=== PATIENT | female | born 1955 | race Caucasian/White ===

== ENCOUNTER 2020-04-19 19:04 | Observation (INO) ==
[2020-04-19 19:47] LABS: ABG Base Excess 11 mEq/L (-2 to 3); ABG HCO3 44 mEq/L (21-27); ABG Oxygen Saturation 88 % (95-98); ABG PCO2 121 mmHg (35-45); ABG PH 7.17 pH Units (7.32-7.45); ABG PO2 75 mmHg (85-104); ABG TCO2 48 mEq/L (20-26)
[2020-04-19 19:51] LABS: Bilirubin,Urine Negative (Negative); Blood,Urine Trace-lysed (Negative); Clarity,Urine Cloudy (Clear); Color,Urine Yellow (Yellow); Glucose,Urine (UA) Normal (Normal); Ketones,Urine Negative (Negative); Leukocyte Esterase,Urine Negative (Negative); Nitrite,Urine Negative (Negative); Protein,Urine >=300 mg/dL (Neg-Trace); Specific Gravity,Urine 1.025 (1.010-1.025); Urobilinogen,Urine Normal (Normal)
[2020-04-19 19:57] LABS: Amorphous Sediment,Urine Many per hpf (None-Few); Bacteria,Urine Few per hpf (None-Few); Transitional Epi Cells,Urine Moderate per hpf (None-Few)
[2020-04-19] MEDS ORDERED: methylPREDNISolone 125 MG/2 ML VIAL IVP ONE (19:59)
[2020-04-19] MEDS ORDERED: Ipratropium/Albuterol Neb 3 ML IH ONE (19:59)
[2020-04-19 20:00] LABS: Activated Partial Thrombo Time 33.1 Seconds (26.0-36.0); INR 1.1; Prothrombin Time 12.4 Seconds (9.4-12.1)
[2020-04-19] MEDS ORDERED: Azithromycin 500 MG in 0.9 % Sodium Chloride 250 ML IVPB ONE (20:00)
[2020-04-19 20:05] LABS: Basophils % 0.4 %; Eosinophils % 0.2 %; Hematocrit 36.4 % (35.3-44.9); Hemoglobin 9.9 g/dL (11.5-15.4); Immature Granulocytes % 1.8 % (0-4); Lymphocytes # 0.6 K/mcL (0.6-4.6); Lymphocytes % 6.8 %; Mean Corpuscular HGB Conc 27.2 g/dL (31.6-35.5); Mean Corpuscular Hemoglobin 26.1 pg (28.0-33.3); Mean Platelet Volume 12.1 fL (9.4-12.4); Monocytes # 0.6 K/mcL (0.0-1.3); Monocytes % 6.5 %; Neutrophils # 7.2 K/mcL (1.6-8.9); Platelet Count 170 K/mcL (140-400); Red Blood Count 3.79 M/mcL (3.82-4.97); Red Cell Distribution Width 15.8 % (11.5-14.5); Segmented Neutrophils % 84.3 %; White Blood Count 8.6 K/mcL (4.3-11.1)
[2020-04-19 20:08] LABS: Troponin I < 0.03 ng/mL (< 0.04)
[2020-04-19 20:10] LABS: Platelet Estimate Normal (Normal)
[2020-04-19 20:12] LABS: Alanine Aminotransferase 16 Units/L (7-52); Albumin 3.6 g/dL (3.5-5.7); Albumin/Globulin Ratio 1.3 (1.1-2.2); Alkaline Phosphatase 206 Units/L (34-104); Aspartate Amino Transferase 13 Units/L (13-39); BUN/Creatinine Ratio 23 (6-26); Bilirubin,Indirect 0.4 mg/dL (0.0-1.0); Bilirubin,Total 0.4 mg/dL (0.3-1.0); Blood Urea Nitrogen 35 mg/dL (8-23); Calcium 10.2 mg/dL (8.6-10.3); Carbon Dioxide 43 mEq/L (23-29); Chloride 99 mEq/L (98-107); Ethanol < 10 mg/dL (Less than 10); Globulin 2.7 g/dL (2.4-3.5); Glucose 143 mg/dL (70-105); Lipase 8 Units/L (11-82); Osmolality,Calculated 306 (280-300); Potassium 5.3 mEq/L (3.5-5.1); Sodium 143 mEq/L (136-145); Total Protein 6.3 g/dL (6.4-8.9); eGFR For African Americans 43 (> 60); eGFR For Non-African Americans 35 (> 60)
[2020-04-19] MEDS ORDERED: Furosemide 40 MG in 0.9 % Sodium Chloride 50 ML IV STA (20:58)
[2020-04-19] MEDS ORDERED: Ondansetron 4 MG/2 ML VIAL IVP ONE (20:59)
[2020-04-19] MEDS ORDERED: Furosemide 40 MG/4 ML VIAL IVP ONE (21:15)
[2020-04-19 21:54] LABS: ABG Base Excess 10 mEq/L (-2 to 3); ABG HCO3 42 mEq/L (21-27); ABG Oxygen Saturation 86 % (95-98); ABG PCO2 108 mmHg (35-45); ABG PH 7.19 pH Units (7.32-7.45); ABG PO2 69 mmHg (85-104); ABG TCO2 45 mEq/L (20-26)
[2020-04-19] MEDS ORDERED: Ondansetron 4 MG/2 ML VIAL IVP PRN (22:16)
[2020-04-19] MEDS ORDERED: Naloxone 0.4 MG/ML INJ IVP PRN (22:16)
[2020-04-19] MEDS ORDERED: cloNIDine HCL 0.1 MG TABLET PO SCH (23:15)
[2020-04-19] MEDS ORDERED: hydrALAZINE 25 MG TABLET PO SCH (23:15)
[2020-04-19] MEDS ORDERED: Nitrofurantoin (BID) 100 MG CAPSULE PO SCH (23:15)
[2020-04-20] MEDS: Ipratropium/Albuterol Neb 3 ML IH SCH ×2 (00:58→09:16)
[2020-04-20] MEDS ORDERED: *HR* Dextrose 50 % in Water (Vial) 50 ML VIAL IVP PRN (03:17)
[2020-04-20] MEDS ORDERED: Dextrose Gel 15 GM/37.5 ML TUBE PO PRN ×2 (03:17)
[2020-04-20] MEDS ORDERED: D5% in Water 1,000 ML IVC PRN (03:17)
[2020-04-20 03:35] VITALS: BP 149/85
[2020-04-20] MEDS ORDERED: MethylPREDNISolone 40 MG/ML VIAL IVP SCH (04:00)
[2020-04-20] MEDS ORDERED: Insulin LISPRO 300 UNITS/3 ML VIAL SUBQ SCH ×2 (06:00→08:00)
[2020-04-20] MEDS ORDERED: *HR* Glimepiride 4 MG TABLET PO SCH (08:00)
[2020-04-20] MEDS ORDERED: Metoprolol XL (24 HR) Succ 50 MG TAB.ER.24H PO SCH (09:00)
[2020-04-20] MEDS ORDERED: lisinopriL 20 MG TABLET PO SCH (09:00)
[2020-04-20] MEDS ORDERED: Furosemide 20 MG TABLET PO SCH (09:00)
[2020-04-20] MEDS ORDERED: Nystatin POWDER 30 GM BOTTLE TP SCH (09:00)
[2020-04-20] MEDS ORDERED: cefTRIAXone 1,000 MG in 0.9 % Sodium Chloride Mini Bag 100 ML IVPB SCH (09:00)
[2020-04-20] MEDS ORDERED: Azithromycin 500 MG in 0.9 % Sodium Chloride 250 ML IVPB SCH (09:00)
[2020-04-20] MEDS ORDERED: allopurinoL 100 MG TABLET PO SCH (09:00)
[2020-04-20] MEDS ORDERED: Aspirin Enteric Coated 81 MG Tablet PO SCH (09:00)
[2020-04-20] MEDS ORDERED: Insulin DETEMIR 100 UNIT/ML X5UNITS SUBQ SCH (21:00)
== END 2020-04-20 04:24 | disposition short-term general hospital (02) ==
LOC: INPPIK 19:04 → EMEROOPIK 19:04 → INPPIK 22:38
PROVIDERS: ADMIT Family Medicine; ATTEND Family Medicine